=== PATIENT | female | born 2000 | race Two or more races ===

== ENCOUNTER 2021-07-13 15:12 | Emergency (ER) | payer OTHER ==
[~2021-07-13] VITALS: Ht 172.7 cm; Wt 78.5 kg
== END 2021-07-13 21:14 | disposition home or self-care (01) ==
LOC: ER 15:12 → EMR PED 15:12 → ER 16:22
DX: N93.8 Other specified abnormal uterine and vaginal bleeding (principal); T19.3XXD Foreign body in uterus, subsequent encounter; Z97.5 Presence of (intrauterine) contraceptive device

== ENCOUNTER 2022-06-25 16:16 | Emergency (ER) | payer OTHER ==
[~2022-06-25] VITALS: Ht 175.3 cm; Wt 83.9 kg
== END 2022-06-25 20:12 | disposition home or self-care (01) ==
LOC: ER 16:16
DX: R10.2 Pelvic and perineal pain (principal); Z91.013 Allergy to seafood

== ENCOUNTER 2022-06-26 08:59 | Outpatient (CLI) | payer OTHER | END 2022-06-26 09:08 | disposition home or self-care (01) | LOC: SONOGRAMA 08:59 | DX: C25.9 Malignant neoplasm of pancreas, unspecified (principal) ==

== ENCOUNTER 2023-11-28 11:15 | Emergency (ER) | payer OTHER ==
[~2023-11-28] VITALS: Ht 175.3 cm; Wt 85.7 kg
[2023-11-28] MEDS ORDERED: 0.9 % SODIUM CHLORIDE 1,000 ML IV STA (11:38)
[2023-11-28 13:37] LABS: HEMATOCRIT 37.4 % (36.0-45.00); HEMOGLOBIN 12.2 g/dL (12.0-15.00); MEAN CELL VOLUME 77.3 fL (80.00-100.00); MEAN CORPUSCULAR HEMOGLOBIN 25.3 pg (27.00-32.0); MEAN CORPUSCULAR HGB CONC 32.7 g/dl (32.0-36.0); PLATELET COUNT 308 K/uL (150-450); RED BLOOD COUNT 4.83 M/uL (4.00-6.00); RED CELL DISTRIBUTION WIDTH 14.3 % (11.5-14.5)
[2023-11-28 13:39] LABS: URINE APPEARANCE Clear; URINE BILIRRUBIN Negative (NEGATIVE); URINE BLOOD Negative; URINE COLOR Yellow; URINE GLUCOSE Negative (NEGATIVE); URINE LEUKOCYTE Negative; URINE NITRATE Negative; URINE PROTEIN Negative (NEGATIVE); URINE UROBILINOGEN 0.2 E.U./dl
[2023-11-28 13:43] LABS: URINE BACTERIA 40.3 uL (0.0-1933); URINE EPITHELIAL CELLS 2.2 uL (0.0-38.8); URINE RBC 3.3 uL (0.0-20.8)
[2023-11-28 13:44] LABS: URINE WBC 0.4 uL (0.0-23.2)
[2023-11-28 14:25] LABS: CALCIUM 9.3 mg/dL (8.5-10.1); CREATININE SERUM 0.52 mg/dL (0.55-1.02); GFR 146.13; POTASSIUM 3.34 mEq/L (3.5-5.1)
[2023-11-28] MEDS ORDERED: DICLOFENAC SODI75 MG PO (18:40)
[2023-11-28] MEDS ORDERED: KETOROLAC TROMETHAMINE 30 MG VIAL IV ONE (18:45)
== END 2023-11-28 20:24 | disposition home or self-care (01) ==
LOC: ER 11:15
PROVIDERS: Emergency Medicine
DX: N83.202 Unspecified ovarian cyst, left side (principal); Z91.013 Allergy to seafood